=== PATIENT | female | born 1970 | race Caucasian/White ===

== ENCOUNTER 2016-07-31 05:56 | Day surgery (SDC) ==
[2016-07-29 15:04] LABS: MANUAL DIFF NEEDED? NO
[2016-07-29 15:17] LABS: BASO% 0.2 % (0.0-0.8); EOS# 0.26 X1000 (0.0-0.7); HEMOGLOBIN 14.4 g/dL (12.0-16.0); IMM GRAN# 0.01 X1000 (0.0-0.04); IMM GRAN% 0.1 % (0.0-0.5); LYMPH# 2.77 X1000 (1.2-3.4); LYMPH% 32.4 % (20.5-51.1); MCH 31.9 PG (27-31); MCHC 33.5 g/dL (33-37); MCV 95.1 FL (81-99); MONO# 0.93 X1000 (0.11-0.59); MONO% 10.9 % (1.7-9.3); MPV 9.8 FL (7.4-10.4); NEUT% 53.4 % (42.2-75.2); PLT 265 X1000 (130-400); RBC 4.52 XMIL (4.2-5.4)
--- NOTE | 2016-07-30 08:36 | HISTORY AND PHYSICAL ---
ADMITTING PHYSICIAN: Jose Palm MD. ADMITTING DIAGNOSES: 1. Polycystic ovary syndrome. 2. Amenorrhea. SUMMARY: La Dumont is a 45-year-old, nulliparous female who has ultrasound proven polycystic ovary syndrome. She has weight gain, abnormal hair growth, fatigue, depression, anemia from this condition. We have tried her on metformin and this failed to relieve her symptoms. After discussing options with the patient, she is being admitted for a laparoscopic supracervical hysterectomy and bilateral salpingo-oophorectomy. PAST MEDICAL HISTORY: She has a history of hypertension and elevated cholesterol. She has had a LEEP procedure in the past. Recent Pap smears have been normal. She has had a hemorrhoidectomy recently. ALLERGIES: Prilosec. CURRENT MEDICATIONS: Include Wellbutrin, Protonix, Topamax, Ziac, hydrochlorothiazide, Zocor, and metformin. PHYSICAL EXAMINATION: VITAL SIGNS: Her weight is 273. CARDIOVASCULAR: Regular rate and rhythm without murmurs, rubs, or gallops. PULMONARY: Clear. BREASTS: No masses. ABDOMEN: Tender without rebound, rigidity, or guarding. PELVIC: Examination shows normal external genitalia. Cervix is grossly free of lesions. Recent Pap smear was read as normal. There is diffuse pelvic tenderness. EXTREMITIES: No clubbing, edema, or cyanosis. IMPRESSION: 1. Polycystic ovary syndrome. 2. Amenorrhea. PLAN: We will proceed with a laparoscopic supracervical hysterectomy and bilateral salpingo- oophorectomy. Risks of the procedure including pain, bleeding, infection, bowel or bladder injury, anesthesia complications have been discussed. She understands there will be a need for continued Pap smear surveillance. Alternatives to this surgery were discussed.
[2016-07-31] MEDS ORDERED: KEFZOL 1 GM/D5W 50 ML IV ONE (06:15)
[2016-07-31] MEDS ORDERED: LR 1,000 ML IV SCH (06:15)
[2016-07-31] MEDS ORDERED: REGLAN IM ONE (06:39)
[2016-07-31] MEDS ORDERED: CLAVE SECONDARY SET 11953 ONE (08:22)
[2016-07-31] MEDS ORDERED: KEFZOL 2 GM/D5W 50 ML ONE (08:22)
[2016-07-31] MEDS ORDERED: FENTANYL ONE (08:29)
[2016-07-31] MEDS ORDERED: VERSED ONE (08:30)
[2016-07-31] MEDS ORDERED: DIPRIVAN 1% ONE (08:30)
[2016-07-31] MEDS ORDERED: SENSORCAINE 0.25%/EPI 1:200,000 ONE (08:40)
[2016-07-31] MEDS ORDERED: LR 1,000 ML ONE ×2 (08:40→10:46)
[2016-07-31 09:41] LABS: URINE SOURCE CATH
[2016-07-31 09:45] LABS: BILIRUBIN URINE NEGATIVE (NEGATIVE); BLOOD URINE 1+ (NEGATIVE); CLARITY CLEAR (CLEAR); COLOR YELLOW; GLUCOSE URINE NEGATIVE (NEGATIVE); LEUKOCYTES URINE NEGATIVE (NEGATIVE); NITRITE URINE NEGATIVE (NEGATIVE); PH URINE 6.5; PROTEIN URINE NEGATIVE (NEGATIVE); URINE MICROSCOPIC NEEDED? YES; UROBILINOGEN URINE NORMAL
[2016-07-31 09:57] LABS: URINE EPITHELIAL CELLS <10 /HPF (<10); URINE RBC <10 /HPF (<10)
[2016-07-31] MEDS ORDERED: ZOFRAN ODT PO PRN (10:11)
[2016-07-31] MEDS ORDERED: PHENERGAN IM PRN (10:11)
[2016-07-31] MEDS ORDERED: ZOFRAN IV PRN (10:11)
[2016-07-31] MEDS ORDERED: FLEET ENEMA PR PRN (10:11)
[2016-07-31] MEDS ORDERED: LEVSIN-SL SL PRN (10:11)
[2016-07-31] MEDS ORDERED: AMBIEN PO PRN (10:11)
[2016-07-31] MEDS ORDERED: DEMEROL IM PRN (10:11)
[2016-07-31] MEDS ORDERED: DULCOLAX PR PRN (10:11)
[2016-07-31] MEDS ORDERED: NORCO-10 PO PRN (10:11)
[2016-07-31] MEDS ORDERED: DUONEB (A & A) INH ONE (10:56)
[2016-07-31] MEDS ORDERED: ALBUTEROL NEB ONE (11:00)
[2016-07-31] MEDS: LR 1,000 ML IV SCH ×2 (12:48→22:38)
[2016-07-31] MEDS: NORCO-5 PO PRN ×3 (12:49→22:34)
[2016-07-31] MEDS: MYLICON PO PRN ×2 (13:39→16:22)
[2016-07-31 15:08] LABS: HEMOGLOBIN 13.6 g/dL (12.0-16.0)
--- NOTE | 2016-07-31 15:52 | OPERATIVE NOTE ---
PROCEDURE DATE: 07/31/2016 SURGEON: Dr Jose Palm. PATIENT SAFETY MANAGER: Erick. ANESTHESIA: General endotracheal. OPERATION PERFORMED: Laparoscopic supracervical hysterectomy with bilateral salpingo- oophorectomy. PREOPERATIVE DIAGNOSES: 1. Polycystic ovaries. 2. Dysfunctional uterine bleeding with dysmenorrhea and menorrhagia. POSTOPERATIVE DIAGNOSES: 1. Polycystic ovaries. 2. Dysfunctional uterine bleeding with dysmenorrhea and menorrhagia. FINDINGS: The ovaries were enlarged and polycystic. The uterus was grossly normal. DESCRIPTION OF PROCEDURE: The patient was taken back to the operating room and after general endotracheal anesthesia, was placed in dorsal lithotomy position. The vagina, perineum, and abdomen prepped and draped in usual fashion. A catheter was placed in the urinary bladder. An incision was made above the umbilicus. Through this, a Veress needle was inserted. Pneumoperitoneum was created. Laparoscopic trocar was then introduced without difficulty. Initial laparoscopic examination showed no apparent bowel or blood vessel injury. A 5 mm trocar was then placed on the patient's right lateral abdomen and a 10 mm on the left lateral abdomen. The patient was then placed in deep Trendelenburg positioning. The left ovary was grasped and displaced to the midline. Using the 5 mm LigaSure device the infundibulopelvic ligament was clamped, cauterized, and excised. Continuing with the LigaSure the remainder of the broad ligament was clamped, cauterized, and excised. The round ligament was then clamped, cauterized, and excised using the LigaSure. We then used the LigaSure to clamp, cauterize, and excise the broad ligament. The bladder flap was created. The uterine vessels were isolated on the left side, and these were cauterized with the LigaSure device. We then directed attention to the right side where the ovary was grasped and displaced to the midline. Using the LigaSure device the infundibulopelvic ligament was grasped, cauterized, and excised. We then used the LigaSure device in sequential steps to clamp, clamp, cauterize and excise the remainder of the ovary tissue along with the round ligament and broad ligament. The bladder flap was further extended using the LigaSure. The LigaSure device was then used to cauterize the uterine vessels on the patient's right side. The LigaSure was replaced with the SonoSurg. Using the SonoSurg, we went across the lower uterine segment at the level of the uterosacral ligaments to the midline. We then directed attention to the left side, where the SonoSurg was placed through the trocar on the left side, and then used to excise the remainder of the uterus and cervix from the lower uterine segment at the level of the uterosacral ligaments. We then placed the morcellator through the left port. Using the morcellator the ovaries and uterus were morselized and extracted. All fragments were removed. The pelvic cavity was irrigated with copious amounts of sterile water with the blood loss being estimated at 20 mL. We then placed Interceed across the cervical stump after reducing the pressure to 5 mmHg which revealed no bleeding. We closed the left sided trocar site with aid of the wound closer device. All instruments removed. Pneumoperitoneum was relieved. The skin incision was oversewn using Vicryl suture and infiltrated with 0.25% Marcaine. Anesthesia estimated our blood loss at 20 mL. There were no complications. The patient was extubated and went to recovery room in stable condition.
[2016-07-31] MEDS: TORADOL IV SCH ×2 (16:23→22:35)
[2016-07-31] MEDS ORDERED: DECADRON ONE (19:25)
[2016-07-31] MEDS ORDERED: ZOFRAN ONE (19:25)
[2016-07-31] MEDS ORDERED: TORADOL ONE (19:25)
[2016-07-31] MEDS ORDERED: QUELICIN (DOSE) ONE (19:25)
[2016-07-31] MEDS ORDERED: ZEMURON ONE (19:25)
[2016-07-31] MEDS ORDERED: XYLOCAINE-MPF 2% ONE (19:25)
[2016-07-31] MEDS ORDERED: NEOSTIGMINE ONE (19:25)
[2016-07-31] MEDS: COLACE PO SCH (20:37)
[2016-07-31] MEDS: PERIDEX MT SCH (20:37)
[2016-07-31] MEDS ORDERED: ZOCOR PO SCH (21:00)
[2016-08-01] MEDS: LR 1,000 ML IV SCH (00:07)
[2016-08-01] MEDS: TORADOL IV SCH (04:09)
[2016-08-01] MEDS ORDERED: PROTONIX PO SCH (07:00)
[2016-08-01 07:38] VITALS: BP 115/75
[2016-08-01] MEDS: COLACE PO SCH (08:35)
[2016-08-01] MEDS: PERIDEX MT SCH (08:35)
[2016-08-01] MEDS ORDERED: HYDROCHLOROTHIAZIDE PO SCH (09:00)
[2016-08-01] MEDS ORDERED: TOPAMAX PO SCH (09:00)
[2016-08-01] MEDS ORDERED: WELLBUTRIN XL PO SCH (09:00)
[2016-08-01] MEDS ORDERED: ZIAC 5/6.25 MG PO SCH (09:00)
--- NOTE | 2016-08-01 15:49 | DISCHARGE SUMMARY ---
ADMISSION DATE: 07/31/2016 DISCHARGE DATE: 08/01/2016 ADMITTING DIAGNOSES: 1. Polycystic ovary syndrome. 2. Abnormal uterine bleeding. PRINCIPAL DIAGNOSES: 1. Polycystic ovary syndrome. 2. Abnormal uterine bleeding. PRINCIPAL PROCEDURE: Laparoscopic supracervical hysterectomy and bilateral salpingo-oophorectomy. SUMMARY: La Dumont is a 45-year-old with ultrasound proven polycystic ovary syndrome. She has had significant symptoms from that and has had abnormal uterine bleeding. After discussing options with the patient, she is and due to the failed medical management she was admitted to the hospital and underwent a laparoscopic supracervical hysterectomy and bilateral salpingo- oophorectomy. Final pathology report is pending. The ovaries were enlarged and polycystic. There were no intraoperative complications. Postoperatively, the patient has done very well. She has remained afebrile. All vital signs have been stable. She had an admission hemoglobin and hematocrit on 14.4/43, with discharge hemoglobin and hematocrit being 13.6/42. On the day of discharge, cardiac and pulmonary examinations are normal. Bowel and bladder function was normal. Incision was clean and dry. She is having scant vaginal bleeding. DISPOSITION: Ms. Dumont is being discharged today. FOLLOWUP: She will be seen back in the office in 1 week. DISCHARGE INSTRUCTIONS: Routine discharge instructions, activity limitations, and precautions were discussed. She will continue her home medications but we will stop metformin. She is given prescriptions for [place]ne[place] 10, #30 and Motrin for postoperative pain.
[2016-08-01] MEDS ORDERED: TORADOL PO SCH (16:13)
== END 2016-08-01 09:10 | disposition home or self-care (01) ==
LOC: P.OR 05:56 → P.WC 05:59 → P.OR 08-01 09:10
PROVIDERS: ATTEND Obstetrics & Gynecology
DX: E28.2 Polycystic ovarian syndrome (principal); N93.8 Other specified abnormal uterine and vaginal bleeding; N94.6 Dysmenorrhea, unspecified; N92.0 Excessive and frequent menstruation with regular cycle; I10 Essential (primary) hypertension; E78.00 Pure hypercholesterolemia, unspecified
CPT/HCPCS: 36415; 81001; 84703; 85014; 85018; 85025; 94640; 94761; 94799; C1765; J0330; J0690; J1100; J1885; J2250; J2405; J2765; J3010; J7120; J2710